=== PATIENT | male | born 1990 | race American Indian/Alaskan Native ===

== ENCOUNTER 2017-08-12 12:34 | Emergency (ER) | payer OTHER ==
[2017-08-12] MEDS ORDERED: BOOSTRIX IM ONE (12:38)
[2017-08-12] MEDS ORDERED: DILAUDID IV ONE ×2 (12:38→13:05)
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
[2017-08-12] MEDS ORDERED: ANCEF ONE (12:44)
[2017-08-12] MEDS ORDERED: NACL 0.9% IR PRN (12:44)
[2017-08-12] MEDS ORDERED: ceFAZolin 1 GM in NACL 0.9% 20 ML IV SCH (12:45)
[2017-08-12] MEDS ORDERED: ceFAZolin 1 GM in NACL 0.9% 20 ML IV ONE (13:00)
[2017-08-12 13:09] LABS: Hematocrit 43.6 % (35.5-45.6); Hemoglobin 14.8 gm/dl (11.8-15.2); Mean Corpuscular HGB Conc 34 % (32-34); Mean Corpuscular Hemoglobin 31 pg (28-32); Mean Corpuscular Volume 90 fl (84-94); Platelet Count 218 K/mm3 (140-440); Red Blood Count 4.82 M/mm3 (3.65-5.03); Red Cell Distribution Width 13.3 % (13.2-15.2); White Blood Count 8.3 K/mm3 (4.5-11.0)
[2017-08-12 13:14] LABS: INR 0.92 (0.87-1.13)
[2017-08-12 13:15] LABS: Anion Gap 24 mmol/L; BUN/Creatinine Ratio 14; Blood Urea Nitrogen 10 mg/dL (9-20); Calcium 9.1 mg/dL (8.4-10.2); Carbon Dioxide 21 mmol/L (22-30); Chloride 96.1 mmol/L (98-107); Creatine Kinase 179 units/L (55-170); Glucose 399 mg/dL (75-100); Partial Thromboplastin Time 26.2 Sec. (24.2-36.6); Potassium 3.1 mmol/L (3.6-5.0); Sodium 138 mmol/L (137-145)
[2017-08-12] MEDS ORDERED: MARCAINE 0.5% INFILTRATI ONE (13:15)
[2017-08-12] MEDS ORDERED: ZOFRAN IV ONE (13:22)
[2017-08-12] MEDS ORDERED: ZOFRAN ONE (13:22)
[2017-08-12] MEDS ORDERED: K-DUR PO ONE (13:23)
[2017-08-12] MEDS ORDERED: ANTIBIOTIC OINT TP ONE (13:33)
[2017-08-12] MEDS ORDERED: MAG-OX PO ONE (13:41)
[2017-08-12] MEDS ORDERED: NACL 0.9% 1000 ML 1,000 ML IV ONE (13:41)
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
[2017-08-12] MEDS ORDERED: KCL 10MEQ/100ML 10 MEQ/100 ML BAG IV SCH (14:00)
[2017-08-12] MEDS ORDERED: KCL 20 MEQ in NACL 0.9% 250ML 250 ML IV ONE (14:00)
[2017-08-12 14:18] VITALS: BP 123/66
== END 2017-08-12 16:50 | disposition home or self-care (01) ==
LOC: ED 12:34
DX: S61.432A Puncture wound without foreign body of left hand, initial encounter (principal); E11.9 Type 2 diabetes mellitus without complications; F17.200 Nicotine dependence, unspecified, uncomplicated; W34.09XA Accidental discharge from other specified firearms, initial encounter; Y93.89 Activity, other specified; Y92.89 Other specified places as the place of occurrence of the external cause; Y99.8 Other external cause status
CPT/HCPCS: 36415; 73120; 80048; 82550; 82962; 85027; 85610; 85730; 90471; 90715; 96365; 96366; 96375; 99284; J0690; J1170; J2405; J3480; J7050; J1815